=== PATIENT | female | born 1995 | race Asian ===

== ENCOUNTER 2018-07-19 13:06 | Emergency (ER) | payer MEDICAID ==
[~2018-07-19] VITALS: Ht 160 cm; Wt 82.0 kg
[2018-07-19 13:22] VITALS: BP 119/63
--- NOTE | 2018-07-19 13:29 | NUR ---
PT ANABELLE AYON FROM [employer]SELORS OFFICE FOR MAKING SI STATMENTS OF WANTING TO TAKE A WHOLE BOTTLE OF MELATONIN, BUT DIDNT BECAUSE IT SAYS NOT TO TAKE IT WHILE . PT IS 23 WEEKS . OB NURSE AT BEDSIDE ASSESSED HEART TONES AT 150'S. PT IS ALERT, ORIETNED, WITH NAD.
--- NOTE | 2018-07-19 13:32 | NUR ---
pt is dressed in a gown, belongings placed in 1 bag and locked in the locker.
[2018-07-19 13:49] LABS: MICROSCOPIC INDICATED
[2018-07-19 13:49] LABS: MEAN CORPUSCULAR HEMOGLOBIN 25.7 pg (27.0-34.8); MEAN CORPUSCULAR HGB CONC 32.3 g/dL (32.4-35.8); MEAN CORPUSCULAR VOLUME 79.4 fL (80-100); PLATELET COUNT 217 x10^3/uL (130-400); RED BLOOD COUNT 4.55 x10^6/uL (3.82-5.3); RED CELL DISTRIBUTION WIDTH 15.6 % (9.6-15.2)
[2018-07-19 13:50] LABS: CULTURE INDICATED? YES
[2018-07-19 14:02] LABS: CHLORIDE 109 mmol/L (98-107)
[2018-07-19 14:13] LABS: ALANINE AMINOTRANSFERASE 14 U/L (12-78); ALBUMIN 2.9 g/dL (3.4-5.0); ALKALINE PHOSPHATASE 92 U/L (45-117); ANION GAP 7 mmol/L (5-15); BILIRUBIN,TOTAL 0.3 mg/dL (0.2-1.0); CALCIUM 8.3 mg/dL (8.5-10.1); CREATININE 0.63 mg/dL (0.55-1.02); TOTAL PROTEIN 7.4 g/dL (6.4-8.2)
[2018-07-19 14:14] LABS: ACETAMINOPHEN < 2 mcg/mL (10-30); SALICYLATE LEVEL < 1.7 mg/dL (2.8-20.0)
[2018-07-19 14:22] LABS: AMPHETAMINE SCREEN, URINE Negative (Negative); BARBITURATE SCREEN, URINE Negative (Negative); BENZODIAZEPINE SCREEN, URINE Negative (Negative); CANNABINOID SCREEN, URINE Positive (Negative); COCAINE SCREEN, URINE Negative (Negative); METHADONE SCREEN, URINE Negative (Negative); OPIATE SCREEN, URINE Negative (Negative)
[2018-07-19 14:24] LABS: BASOPHILS # (AUTO) 0.02 x10^3/uL (0-0.1); BASOPHILS % (AUTO) 0 % (0-1); EOSINOPHILS % (AUTO) 1 % (1-7); LYMPHOCYTES # (AUTO) 1.71 x10^3/uL (1-3.4); LYMPHOCYTES % (AUTO) 13 % (22-44); MD SCAN; MONOCYTES # (AUTO) 0.53 x10^3/uL (0.2-0.8); MONOCYTES % (AUTO) 4 % (2-9); NEUTROPHILS # (AUTO) 10.58 x10^3/uL (1.8-6.8); NEUTROPHILS % (AUTO) 82 % (42-75)
--- NOTE | 2018-07-19 14:54 | NUR ---
PT GIVEN LUNCH TO EAT. PT IS APPRECIATIVE. SITTER OUTSIDE THE ROOM.
--- NOTE | 2018-07-19 15:17 | NUR ---
PT REFUSED TO EAT. SHE STATED THAT SHE IS UNCONFORTABLE AND ANXIOUS. GAVE PT A PILLOW. INFORMED MD. EXPLAINED TO THE PT THE POC.
--- NOTE | 2018-07-19 16:07 | NUR ---
WELL CARE AT BEDSIDE.
--- NOTE | 2018-07-19 16:43 | NUR ---
PT GIVEN WATER TO DRINK. PT IS APPRECIATIVE.
--- NOTE | 2018-07-19 17:48 | NUR ---
Patient given discharge instructions and they have confirmed that they understand the instructions. Patient ambulatory with steady gait.
== END 2018-07-19 17:50 | disposition home or self-care (01) ==
LOC: ED 13:45
DX: O99.341 Other mental disorders complicating pregnancy, first trimester (principal); F32.9 Major depressive disorder, single episode, unspecified; Z3A.01 Less than 8 weeks gestation of pregnancy
CPT/HCPCS: 36415; 59025; 80053; 80307; 80329; 81001; 85025; 87086; 99201; 99283; 99284; G0463; G0480